=== PATIENT | male | born 1990 | race Two or more races ===

== ENCOUNTER 2021-07-06 07:21 | Emergency (ER) | payer OTHER ==
[~2021-07-06] VITALS: Ht 188 cm; Wt 86.3 kg
[2021-07-06 07:57] VITALS: BP 142/83
--- NOTE | 2021-07-06 08:02 | PHYS DOC ---
General Adult EDM: Chief Complaint: FINGER INJURY HPI: HPI: Patient is a 30 year old male who presents with left index finger injury. This occurred shortly prior to arrival, while at work. He reports that his finger got smashed in a chain. He is right-hand dominant. No previous known injury to this hand or digit. He has some superficial wounds. No pain medications taken prior to arrival. He reports that his tetanus is up-to-date within the last 2 to 3 years. No active bleeding. He does have what appears to be a subungual hematoma. Review of Systems: Review of Systems: Constitutional: Denies fever or chills. [] Musculoskeletal: Left index finger pain and injury Integument: Superficial wounds and bruising of the left index finger Neurologic: Denies headache, denies weakness, numbness or tingling Psychiatric: Anxiety as it pertains to current clinical condition and injury Heart Score: C/O Chest Pain: No Risk Factors: Risk Factors: DM, Current or recent (<one month) smoker, HTN, HLP, family hist ory of CAD, obesity. Risk Scores: Score 0 - 3: 2.5% MACE over next 6 weeks - Discharge Home Score 4 - 6: 20.3% MACE over next 6 weeks - Admit for Clinical Observation Score 7 - 10: 72.7% MACE over next 6 weeks - Early Invasive Strategies Allergies: Allergies: Allergies Coded Allergies Type Severity Reaction Last Updated Verified No Known Drug Allergies 07/06/21 No Physical Exam: PE: Constitutional: Well developed, well nourished, no acute distress, non-toxic appearance. Anxious. HENT: Normocephalic, atraumatic Cardiovascular: +2 radial pulse of the left upper extremity Lungs & Thorax: Respirations are nonlabored Skin: There is superficial linear abrasions of the distal left index finger. He has 1 subcutaneous laceration of the skin of the distal left index finger, just distal to the DIP joint, located on the dorsal/radial portion of the left index finger, not overlying the joint. There is a superficial linear laceration along the distal finger pad of the left index finger. No significant subcutaneous fat is exposed. There is a almost 50% subungual hematoma of the left index finger. There is a subtle abrasion near the cuticle, no large laceration of the nail or nailbed. Extremities: Laceration, subungual hematoma and abrasions of the left index finger, as above. He is able to fully flex and extend at the MCP joint, DIP joint and PIP joint. Sensation is grossly intact, including two-point sensation. Neurologic: Alert and oriented X 3, normal motor function, normal sensory function, no focal deficits noted. [] Psychologic: Anxious EKG: EKG: [] Radiology/Procedures: Radiology/Procedures: IMAGING REPORT Signed PATIENT: LAURA WALKERACCOUNT: [id number] : 1990 LOCATION: ER AGE: 30 SEX: M EXAM STATUS: REG ER ORD. PHYSICIAN: BRANDON ZIMMERMAN DO REASON: left index finger injury PROCEDURE: FINGER(S) LEFT THREE VIEWS LEFT FINGER Clinical History: Reason: left index finger injury Technique: AP view of the hand, as well as lateral and oblique collimated views of the index finger were obtained. Comparison: None. Findings: There is no acute fracture or dislocation. Joint spaces are maintained. The mineralization is normal. There is no bone erosion. There is soft tissue injury/laceration of the tip of the index finger, palmar and lateral. No radiopaque foreign body is identified. IMPRESSION: No acute fracture. Electronically signed by: Grabiel Kennedy MD (07/06/2021 8:31 AM) [id number] DICTATED and SIGNED BY: GRABIEL KENNEDY MD DATE: 07/06/21 [id number] 0 Course & Med Decision Making: Course & Med Decision Making Pertinent Labs and Imaging studies reviewed. (See chart for details) The patient was given p[employer] for pain. He tolerated laceration procedure well. No foreign body is noted on x-ray. I did perform nail trephination, I was able to evacuate the entirety of the subungual hematoma without difficulty. I discussed all of the findings, differential diagnosis and plan of care with the patient. I discussed wound care in detail with him. He is going to follow-up with his work comp clinic, and I also gave him strict return precautions to return here for any other problems or concerns. He verbalized understanding. Sapna Disclaimer: Sapna Disclaimer: This electronic medical record was generated, in whole or in part, using a voice recognition dictation system. Laceration Repair Lac Repair Indication: Lacerations of the left index finger Procedure: The patient was placed in the appropriate position seated on the ED gurney. 1% lidocaine without epinephrine is utilized for local anesthesia, digital block. Adequate anesthesia was achieved. The area was cleaned with B etadine and irrigated copiously with sterile normal saline. No sharp debridement was required. The fingerpad laceration was closed utilizing one 4-0 Ethilon simple interrupted suture. The laceration on the dorsum/ulnar side of the finger was closed utilizing a total of one 4-0 Ethilon simple interrupted suture. The wound area was then dressed with Xeroform, gauze dressing. Total repaired wound length: 2 cm The patient tolerated the procedure well. Complications: None Departure Departure Impression: Primary Impression: Subungual hematoma of left index finger Additional Impression: Laceration of left index finger Qualified Codes: S61.311A - Laceration without foreign body of left index finger with damage to nail, initial encounter Disposition: HOME / SELF CARE / HOMELESS Condition: STABLE Referrals: NO PCP (PCP) Patient Instructions: Laceration Care, Adult, Subungual Hematoma Additional Instructions: Keep your wound clean and dry. Use plain soap and water for cleaning. Return to the ER immediately for severe redness, severe swelling, yellow or green drainage from your wounds, temperature 100.4 or higher, if you develop any red streaks up and down your finger or hand or for any other concerns. Use the prescription medication for severe pain only. Please follow-up for suture removal in 7 days. Please contact your primary care doctor and your work comp clinic for further instructions as well. Keep your finger covered at all times while at work. Scripts Hydrocodone Bit/Acetaminophen (HYDROCODONE-APAP 5-325 ) 1 Tab Tablet 1 TAB PO PRN Q6HRS PRN for PAIN, #20 TAB 0 Refills Prov: BRANDON ZIMMERMAN DO 07/06/21 BRANDON ZIMMERMAN DO Jul 06, 2021 08:02
[2021-07-06] MEDS ORDERED: HYDROcodone/APAP 5/325MG 1 TAB TABLET PO ONE (08:15)
[2021-07-06] MEDS ORDERED: LIDOCAINE 1% Multi-Dose 20 ML VIAL. INJ ONE (08:15)
--- NOTE | 2021-07-06 08:33 | RAD ---
THREE VIEWS LEFT FINGER Clinical History: Reason: left index finger injury Technique: AP view of the hand, as well as lateral and oblique collimated views of the index finger were obtained. Comparison: None. Findings: There is no acute fracture or dislocation. Joint spaces are maintained. The mineralization is normal. There is no bone erosion. There is soft tissue injury/laceration of the tip of the index finger, palmar and lateral. No radiopa que foreign body is identified. IMPRESSION: No acute fracture. Electronically signed by: Grabiel Toth MD (07/06/2021 8:31 AM) [id number]
[2021-07-06] MEDS ORDERED: HYDR-2761 PO (10:49)
== END 2021-07-06 10:54 | disposition home or self-care (01) ==
LOC: ER 07:21
DX: S61.311A Laceration without foreign body of left index finger with damage to nail, initial encounter (principal); W23.0XXA Caught, crushed, jammed, or pinched between moving objects, initial encounter; Y93.89 Activity, other specified; Y92.69 Other specified industrial and construction area as the place of occurrence of the external cause; Y99.0 Civilian activity done for income or pay
CPT/HCPCS: 12001; 73140; 99283; J3490